=== PATIENT | male | born 1950 | race Caucasian/White ===

== ENCOUNTER → 2018-04-08 | Outpatient (CLI) | payer BC ==
[~2018-04-08] MED LIST: ATORVASTATIN CA10 MG PO; FISH OIL500 M1 PO; LEVOTHYROXINE112 MCG PO; LISINOPRIL10 MG PO; PRINIVIL10 MG PO; SYNTHROID125 MCG PO; TRICOR145 MG PO
--- NOTE | 2018-04-08 14:58 | Diagnostic Imaging Report ---
PROCEDURE: CT CHEST WITHOUT CONTRAST CT scan of the chest WITHOUT intravenous contrast, using standard protocol. TECHNIQUE: The chest was scanned utilizing a multidetector helical scanner from the apex to the level of the adrenal glands. No IV contrast was administered because of pulmonary nodule protocol. Coronal and sagittal multiplanar reformations were obtained. DLP: 245.09 mGy-cm COMPARISON: Multiple chest CT's dating back to 05/29/2016, most recent on 07/28/2017 INDICATIONS: LUNG NODULE FINDINGS: Lines/tubes: None. Lungs and Airways: Right upper lobe spiculated nodule (series 3 image 37), stable since most root available chest CT from 05/29/2016. Left apical calcified granuloma, unchanged. No consolidations. Airways are normal. Pleura: Stable lingular pleuroparenchymal thickening and scarring since 05/29/2016. No pleural effusions or pneumothorax. Heart and mediastinum: The thyroid gland is normal. No significant mediastinal, hilar or axillary lymphadenopathy is seen. The heart and pericardium are within normal limits. Coronary artery calcifications, more prominent along the left anterior descending and right coronary arteries. Common origin of the left common carotid and right brachiocephalic arteries. Ascending aorta is mildly ectatic measuring 4.1 cm in diameter. Main pulmonary artery measures 3 cm in diameter. Soft tissues: Normal. Abdomen: Partially visualized views of the right kidney show cortical scarring. Cholecystectomy clips in the gallbladder fossa. Calcified granuloma in the spleen. Limited views of the upper abdomen show no abnormality within the visualized liver, spleen, pancreas, or kidneys. The adrenal glands are normal. Bones: The visualized bony thorax is within normal limits for age. IMPRESSION: Right upper lobe 1 cm spiculated nodule, stable since 05/29/2016. Dictated by: Jose Spear M.D. on 04/08/2018 at 15:01 Electronically approved by: Jose Spear M.D. on 04/08/2018 at 15:01
--- NOTE | 2018-04-08 15:47 | Diagnostic Imaging Report ---
PROCEDURE:US RETROPERITONEAL ( KIDNEY ). COMPARISON:Renal ultrasound 09/23/2017 INDICATIONS:F/U RENAL CYST TECHNIQUE: Cveallos-scale and color sonographic images of the bilateral kidneys and bladder where obtained in transverse and longitudinal planes. FINDINGS: RIGHT KIDNEY: 9.4 x 5.2 x 5.7 cm, cortex 1.5 cm Cysts: * Inferior pole 6.5 x 5.3 x 5.4 cm cyst contains a single septation which is better seen on the previous ultrasound (previously 6.1 x 5.4 x 5.7 cm) * Interpolar region 2.5 x 2.2 x 1.6 cm simple cyst (previously 2.1 x 1.9 x 2.4 cm) Solid masses: None Stones: None Hydronephrosis: None Echogenicity: Normal LEFT KIDNEY: 10.2 x 5.7 x 5.6 cm, cortex 2 cm Cysts: None Solid masses: None Stones: None Hydronephrosis: None Echogenicity: Normal Bladder: Normal Prostate: 2.7 x 2.3 x 3.8 cm (12.4 cc). Size likely underestimated by shadowing. CONCLUSION: Grossly unchanged size of the two right renal cysts. Dictated by: Jose Spear M.D. on 04/08/2018 at 15:51 Electronically approved by: Jose Spear M.D. on 04/08/2018 at 15:51
== END ==
LOC: US 13:51
PROVIDERS: ATTEND Urology
DX: N28.1 Cyst of kidney, acquired (principal); R91.1 Solitary pulmonary nodule
CPT/HCPCS: 71250; 76770

== ENCOUNTER → 2018-07-06 | Outpatient (CLI) | payer BC ==
--- NOTE | 2018-07-06 18:17 | Diagnostic Imaging Report ---
EXAM: Renal Ultrasound INDICATION: \S\ABNORMAL KIDNEY FUNCTION COMPARISON: CT abdomen/pelvis on 05/20/2016 TECHNIQUE: Transverse and longitudinal images of the kidneys and bladder were obtained. FINDINGS: Right Kidney: Size: 9.8 cm Echogenicity: Normal Parenchymal thickness: Normal Collecting system: No hydronephrosis Stones: None Cyst/Mass: 6.4 x 5 x 5 cm inferior pole cyst. 2.2 x 1.9 x 2 cm midpole cyst. Left Kidney: Size: 10.6 cm Echogenicity: Normal Parenchymal thickness: Normal Collecting system: No hydronephrosis Stones: None Cyst/Mass: None Bladder: Unremarkable. Prostate is mildly enlarged. IMPRESSION: Simple appearing right renal cysts, measuring up to 6.4 cm. Otherwise, unremarkable renal ultrasound. Signed by: Dr. Ghulam Hamm MD on 07/06/2018 6:13 PM
== END ==
LOC: US 16:39
PROVIDERS: ATTEND Specialist
DX: R94.4 Abnormal results of kidney function studies (principal)
CPT/HCPCS: 76770

== ENCOUNTER → 2019-02-25 | Outpatient (CLI) | payer BC ==
--- NOTE | 2019-02-25 16:14 | Diagnostic Imaging Report ---
EXAM: Renal Ultrasound INDICATION: Renal cyst. COMPARISON: Renal ultrasound 07/06/2018. TECHNIQUE: Transverse and longitudinal images of the kidneys and bladder were obtained. FINDINGS: Right Kidney: Size: 9.4 cm Echogenicity: Normal Parenchymal thickness: Normal Collecting system: No hydronephrosis Stones: None Cyst/Mass: Again noted are simple appearing right-sided anechoic renal cysts, measuring up to 5.5 x 6.5 x 6.1 cm in the inferior pole (previously 6.4 x 5 x 5 cm), and a 1.9 x 2.1 x 2.2 cm cyst in the midpole (previously 2.2 x 1.9 x 2.0 cm). Left Kidney: Size: 10.2 cm Echogenicity: Normal Parenchymal thickness: Normal Collecting system: No hydronephrosis Stones: None Cyst/Mass: None Bladder: Unremarkable. Bilateral ureteral jets are present. Prostate measures 3.3 x 2.1 x 3.2 cm, with an estimated volume of 11.6 cc. IMPRESSION: Simple appearing right renal cysts. Otherwise, unremarkable renal ultrasound. Signed by: Dr. Alex Arango MD on 02/25/2019 4:11 PM
== END ==
LOC: US 15:07
PROVIDERS: ATTEND Urology
DX: N28.1 Cyst of kidney, acquired (principal); D41.00 Neoplasm of uncertain behavior of unspecified kidney
CPT/HCPCS: 76770

== ENCOUNTER → 2019-04-01 | Outpatient (CLI) | payer BC ==
--- NOTE | 2019-04-01 18:05 | Diagnostic Imaging Report ---
CT scan of the LEFT ANKLE, WITHOUT injected contrast. TECHNIQUE: Standard departmental protocols were used. Sagittal and coronal reformatted images were obtained. HISTORY: Pain, tarsal tunnel syndrome COMPARISON: None. FINDINGS: Bones: Status post ORIF of the medial malleolus via 3 screws. Beam Scott artifact partially limits regional evaluation. No evidence of hardware loosening or failure. A 1.7 cm (AP) x 1.1 cm (ML) chronic appearing osteochondral lesion at the medial talar dome, apparent cystic changes at the interface. Joints: Minimal degenerative changes of the tibiotalar joint. Soft Tissues: Mild nonspecific soft tissue edema. Preservation of fat within the sinus tarsi. IMPRESSION: 1. 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 2. Status post ORIF of a healed medial malleolar fracture. No evidence of hardware loosening or failure. 3. Minimal tibiotalar osteoarthrosis. Signed by: Dr. Mason Ferrera D.O., M.M.M. on 04/01/2019 6:01 PM
== END ==
LOC: CT 16:45
PROVIDERS: ATTEND Orthopaedic Surgery
DX: G57.52 Tarsal tunnel syndrome, left lower limb (principal); M25.572 Pain in left ankle and joints of left foot

== ENCOUNTER → 2020-03-01 | Day surgery (SDC) | payer BC, OTHER ==
[2020-02-25 12:35] LABS: BASOPHILS % 0.7 % (0.0-1.0); EOSINOPHILS # (AUTO) 0.3 (0.0-0.4); EOSINOPHILS % 5.9 % (0.0-6.0); HEMATOCRIT 52.2 % (38.2-49.6); HEMOGLOBIN 18.1 g/dL (14.0-18.0); LYMPHOCYTES # (AUTO) 1.4 (1.0-3.2); LYMPHOCYTES % 25.7 % (18.0-39.1); MEAN CORPUSCULAR HEMOGLOBIN 32.9 pg (28-32); MEAN CORPUSCULAR HGB CONC 34.7 g/dL (31-35); MEAN CORPUSCULAR VOLUME 94.9 fL (81-99); MONOCYTES # (AUTO) 0.6 (0.2-0.8); MONOCYTES % 11.2 % (4.4-11.3); NEUTROPHILS % 56.3 % (38.7-80.0); PLATELET COUNT 155 x10e3/uL (140-360); RED CELL DISTRIBUTION WIDTH 11.9 % (11.7-14.4)
[~2020-03-01] MED LIST changes: +ALLOPURINOL100 MG PO; +AMLODIPINE BESY10 MG PO; +ASPIR 8181 MG PO; +FENTANYL CITRATE/PF 100MCG/2 ML INJ ONE; +HYOSCYAMINE 0.125 MG TAB ONE; +LIDOCAINE HCL 2% LOCAL INJ 5 ML SDV VIAL INJ ONE; +LOSARTAN POTASS25 MG PO; +MIDAZOLAM HCL 5 MG/ML VIAL ONE; +PROPOFOL IV EMULSION 10 MG/ML 20 ML VIAL ONE; +PROTONIX20 MG PO; +ZETIA10 MG PO
[2020-03-01 15:36] VITALS: BP 134/86
--- NOTE | 2020-03-01 22:06 | Operative Report ---
DATE OF PROCEDURE: 03/01/2020 SURGEON: Bradford Stein MD PROCEDURE: EGD with biopsies and colonoscopy with polypectomy. INDICATIONS FOR EGD: History of heartburn and indigestion. INDICATIONS FOR COLONOSCOPY: Surveillance colonoscopy, personal history of colon polyps. MEDICATIONS: The patient was done under MAC, please see anesthesiologist's note. PROCEDURE IN DETAIL: With the patient in left lateral decubitus position, a flexible fiberoptic Olympus gastroscope was introduced into the esophagus under direct visualization without any difficulty. There was some patchy erythema noted in distal esophagus. Minute nodule was noted at the GE junction that was biopsied. The scope was then advanced with ease into the stomach traversing a small hiatal hernia. Mucosa overlying the antrum and the body revealed some patchy erythema and [id number] edema, and biopsies were obtained, sent to stain for H pylori. Minute hyperplastic-appearing polyps were noted in the body somewhat partially excised with cold biopsy forceps. The pylorus was of normal contour and shape, was intubated with ease and the scope was advanced all the way to the second portion of the duodenum. The scope was then withdrawn slowly. Mucosa overlying the proximal second portion and the duodenal bulb appeared to be within normal limits. The scope was then withdrawn back into the stomach and retroflexed and mucosa overlying the fundus and cardia appeared to be within normal limits. The scope was then straightened out, it was subsequently withdrawn. The patient tolerated the procedure well. IMPRESSION: 1. Distal esophagitis, mild. 2. Minute nodule, GE junction, biopsied. 3. Small hiatal hernia. 4. Gastritis, biopsied. Biopsies sent to stain for H pylori. 5. Gastric polyps, minute, hyperplastic-appearing, body, partially excised with the cold biopsy forceps. PLAN: Follow up histology. Increase Protonix to 40 mg one p.o. a.c. b.i.d. The patient was then turned around. After adequate lubrication of the anal canal, a flexible fiberoptic Olympus colonoscope was inserted into the rectum with ease and advanced all the way to the cecum. It was then withdrawn slowly. Mucosa overlying the cecum and ascending colon appeared to be within normal limits. An approximately a 5 mm polyp was removed from the transverse colon per hot snare polypectomy and site was hemoclipped x1. Diverticular disease was noted to involve the descending and the sigmoid colon. One polyp was hot biopsied from the sigmoid colon. One polyp was hot biopsied from the rectum. The scope was then retroflexed into the distal rectum. Small internal hemorrhoids were noted, none of which was actively bleeding. The scope was then straightened out, it was subsequently withdrawn. The patient tolerated the procedure well. IMPRESSION: 1. Transverse colon polyp hot snared and hemoclipped x1. 2. Diverticulosis. 3. A sigmoid colon polyp, hot biopsied. 4. Rectal polyp, hot biopsied. 5. Internal hemorrhoids none actively bleeding. PLAN: Follow up histology. Initiate high-fiber, low-fat diet. Initiate high-fiber supplement. The patient might benefit from a followup colonoscopy in 3 to 5 years. Bradford Stein MD [facility] [place] /[id number] cc: Mini Garcia
== END | disposition home or self-care (01) ==
LOC: OR 10:23
PROVIDERS: ATTEND Internal Medicine Gastroenterology
DX: K29.50 Unspecified chronic gastritis without bleeding (principal); D12.3 Benign neoplasm of transverse colon; K62.1 Rectal polyp; K31.7 Polyp of stomach and duodenum; K21.9 Gastro-esophageal reflux disease without esophagitis; K22.8 Other specified diseases of esophagus; K44.9 Diaphragmatic hernia without obstruction or gangrene; K20.9 Esophagitis, unspecified; K57.30 Diverticulosis of large intestine without perforation or abscess without bleeding; K64.8 Other hemorrhoids; I10 Essential (primary) hypertension; R00.1 Bradycardia, unspecified; E78.5 Hyperlipidemia, unspecified; E03.9 Hypothyroidism, unspecified; Z01.810 Encounter for preprocedural cardiovascular examination; Z01.812 Encounter for preprocedural laboratory examination; Z11.59 Encounter for screening for other viral diseases; Z79.82 Long term (current) use of aspirin
CPT/HCPCS: 36415; 43239; 45384; 45385; 85025; 87635; 93005; J2001; J2250; J2704; J3010; 44391

== ENCOUNTER → 2020-06-06 | Outpatient (CLI) | payer BC ==
[~2020-06-06] MED LIST changes: -FENTANYL CITRATE/PF 100MCG/2 ML INJ ONE; -HYOSCYAMINE 0.125 MG TAB ONE; -LIDOCAINE HCL 2% LOCAL INJ 5 ML SDV VIAL INJ ONE; -MIDAZOLAM HCL 5 MG/ML VIAL ONE; -PROPOFOL IV EMULSION 10 MG/ML 20 ML VIAL ONE
--- NOTE | 2020-06-06 16:26 | Diagnostic Imaging Report ---
EXAM: Renal Ultrasound INDICATION: ^CYST OF KIDNEY COMPARISON: Renal ultrasound 02/25/2019 and 07/06/2018 TECHNIQUE: Transverse and longitudinal images of the kidneys and bladder were obtained. FINDINGS: Right Kidney: Length: 10.2 cm Appearance: Normal echogenicity. Collecting system: No hydronephrosis Stones: None Cyst/Mass: Essentially unchanged anechoic cysts measure up to 6.4 x 6.1 x 5.0 cm (6.5 x 6.1 x 5.5 cm previously). Left Kidney: Length: 10.9 cm Appearance: Normal echogenicity. Collecting system: No hydronephrosis Stones: None Cyst/Mass: None Bladder: No mass or calculi. Ureteral jets not visualized. Bladder volume estimate of 64 cc. Prostate appears unremarkable with volume estimate of 20 cc. IMPRESSION: Stable anechoic right renal cysts. No hydronephrosis or renal calculi. Signed by: Brock Moody MD on 06/06/2020 4:22 PM
== END ==
LOC: US 14:52
PROVIDERS: ATTEND Urology
DX: N28.1 Cyst of kidney, acquired (principal)
CPT/HCPCS: 76770

== ENCOUNTER → 2020-06-12 | Outpatient (CLI) | payer BC | LOC: CARD 13:31 | PROVIDERS: ATTEND General Practice | DX: R55 Syncope and collapse (principal) | CPT/HCPCS: 93880 ==

== ENCOUNTER 2021-03-14 16:01 | Inpatient (IN) | payer MEDICARE, BC ==
[~2021-03-14] VITALS: Ht 175.3 cm; Wt 89.8 kg
[2021-03-14] MEDS ORDERED: SODIUM CHLORIDE 0.9% 1000ML 1,000 ML IV STA (16:13)
[2021-03-14] MEDS ORDERED: MORPHINE SULFATE INJ 4 MG/ML INJ 1ML IV STA (16:15)
[2021-03-14 16:22] LABS: BASOPHILS % 0.4 % (0.0-1.0); EOSINOPHILS # (AUTO) 0.1 (0.0-0.4); EOSINOPHILS % 0.6 % (0.0-6.0); HEMATOCRIT 48.8 % (38.2-49.6); LYMPHOCYTES # (AUTO) 1.2 (1.0-3.2); LYMPHOCYTES % 10.7 % (18.0-39.1); MEAN CORPUSCULAR HEMOGLOBIN 33.1 pg (28-32); MEAN CORPUSCULAR HGB CONC 34.8 g/dL (31-35); MEAN CORPUSCULAR VOLUME 94.9 fL (81-99); MONOCYTES % 9.6 % (4.4-11.3); NEUTROPHILS # (AUTO) 8.5 (2.1-6.9); NEUTROPHILS % 78.5 % (38.7-80.0); PLATELET COUNT 187 x10e3/uL (140-360); RED BLOOD COUNT 5.14 x10e6/uL (4.3-5.7); RED CELL DISTRIBUTION WIDTH 12.1 % (11.7-14.4)
[2021-03-14] MEDS: ONDANSETRON HCL INJ 2MG/ML 2ML 2 MG/ML VIAL IV PRN ×2 (16:31→21:01)
[2021-03-14 16:41] LABS: ALBUMIN 4.1 g/dL (3.5-5.0); ALBUMIN/GLOBULIN RATIO 1.4 (0.8-2.0); ANION GAP 14.8 mmol/L (8-16); CALCIUM 9.1 mg/dL (8.4-10.2); CREATININE, SERUM 1.43 mg/dL (0.72-1.25); POTASSIUM 3.8 mmol/L (3.5-5.1)
[2021-03-14] MEDS ORDERED: SODIUM CHLORIDE 0.9% 50ML 50 ML ONE (17:01)
[2021-03-14] MEDS ORDERED: DIATRIZOATE MEGL/DIATRIZOA SOD 30 ML BTL PO ONE (17:01)
[2021-03-14] MEDS ORDERED: IOPAMIDOL 370 MG/ML 200 ML INFUS..BTL INJ ONE (17:01)
[2021-03-14 18:48] LABS: CLARITY,URINE CLEAR (CLEAR); COLOR,URINE YELLOW (YELLOW); KETONES,URINE NEGATIVE (NEGATIVE); LEUKOCYTE ESTERASE ,URINE NEGATIVE (NEGATIVE); NITRITE,URINE NEGATIVE (NEGATIVE); PROTEIN,URINE DIPSTICK NEGATIVE (NEGATIVE); URINE UROBILINOGEN 1 mg/dL (0.2 - 1)
[2021-03-14 18:51] LABS: WBC,URINE (MAN) 0-5 /HPF (0-5)
[2021-03-14 20:26] VITALS: BP 152/87
[2021-03-14 20:30] VITALS: BP 152/87
[2021-03-14] MEDS: D5.45%NS/KCL 20MEQ 1,000 ML IV SCH (20:53)
[2021-03-14] MEDS: MORPHINE SULFATE INJ 2 MG/ML SYR IV PRN (21:01)
[2021-03-14 22:19] VITALS: BP 152/87
[2021-03-14] MEDS ORDERED: HYDRALAZINE HCL 20 MG/ML VIAL IV PRN (22:30)
[2021-03-14 23:43] VITALS: BP 121/75
[2021-03-15] VITALS (8 sets, daily range): BP systolic 111–123; BP diastolic 58–86
[2021-03-15] MEDS: ONDANSETRON HCL INJ 2MG/ML 2ML 2 MG/ML VIAL IV PRN ×3 (04:35→19:44)
[2021-03-15] MEDS: MORPHINE SULFATE INJ 2 MG/ML SYR IV PRN ×2 (04:35→08:40)
[2021-03-15 04:45] LABS: BASOPHILS % 0.9 % (0.0-1.0); EOSINOPHILS # (AUTO) 0.1 (0.0-0.4); EOSINOPHILS % 1.9 % (0.0-6.0); HEMATOCRIT 48.4 % (38.2-49.6); HEMOGLOBIN 16.5 g/dL (14.0-18.0); LYMPHOCYTES # (AUTO) 0.6 (1.0-3.2); LYMPHOCYTES % 13.9 % (18.0-39.1); MEAN CORPUSCULAR HEMOGLOBIN 32.9 pg (28-32); MEAN CORPUSCULAR HGB CONC 34.1 g/dL (31-35); MEAN CORPUSCULAR VOLUME 96.6 fL (81-99); MONOCYTES # (AUTO) 0.4 (0.2-0.8); MONOCYTES % 8.6 % (4.4-11.3); NEUTROPHILS # (AUTO) 3.2 (2.1-6.9); NEUTROPHILS % 74.5 % (38.7-80.0); PLATELET COUNT 144 x10e3/uL (140-360); RED BLOOD COUNT 5.01 x10e6/uL (4.3-5.7); RED CELL DISTRIBUTION WIDTH 12.2 % (11.7-14.4)
[2021-03-15 05:15] LABS: ALANINE AMINOTRANSFERASE 148 IU/L (0-55); ALBUMIN 3.5 g/dL (3.5-5.0); ALBUMIN/GLOBULIN RATIO 1.3 (0.8-2.0); ALKALINE PHOSPHATASE 97 IU/L (40-150); BLOOD UREA NITROGEN 13 mg/dL (7-26); BUN/CREATININE RATIO 12 (6-25); CALCIUM 8.4 mg/dL (8.4-10.2); CARBON DIOXIDE 26 mmol/L (22-29); CHLORIDE 105 mmol/L (98-107); CHOL/HDL RATIO 2.9 (3.9-4.7); CHOLESTEROL 112 MD/DL (0-199); CREATININE, SERUM 1.13 mg/dL (0.72-1.25); EST GLOMERULAR FILTRATION RATE > 60 ML/MIN (60-); GLUCOSE 110 mg/dL (74-118); HDL CHOLESTEROL 39 MG/DL (40-60); LDL CHOLESTEROL 49 MG/DL (60-130); MAGNESIUM 1.8 MG/DL (1.3-2.1); PHOSPHORUS 3.4 MG/DL (2.3-4.7); SODIUM 141 mmol/L (136-145); TRIGLYCERIDES 118 MG/DL (0-149)
[2021-03-15 05:35] LABS: THYROID STIMULATING HORMONE 0.833 uIU/mL (0.350-4.940)
[2021-03-15] MEDS: D5.45%NS/KCL 20MEQ 1,000 ML IV SCH ×3 (06:16→23:51)
[2021-03-15] MEDS: FAMOTIDINE 20 MG/2 ML VIAL IV SCH (08:41)
[2021-03-15] MEDS: MORPHINE SULFATE INJ 4 MG/ML INJ 1ML IV PRN (19:44)
[2021-03-16 04:00] VITALS: BP 119/65
[2021-03-16] MEDS: D5.45%NS/KCL 20MEQ 1,000 ML IV SCH (05:26)
[2021-03-16 07:43] VITALS: BP 129/69
[2021-03-16 07:45] VITALS: BP 129/69
[2021-03-16] MEDS: FAMOTIDINE 20 MG/2 ML VIAL IV SCH (09:09)
[2021-03-16] MEDS: MORPHINE SULFATE INJ 4 MG/ML INJ 1ML IV PRN (09:18)
[2021-03-16] MEDS: ONDANSETRON HCL INJ 2MG/ML 2ML 2 MG/ML VIAL IV PRN (09:18)
[2021-03-16 11:06] VITALS: BP 120/80
[2021-03-16 15:24] VITALS: BP 117/80
[2021-03-16] MEDS ORDERED: ULTRAM 50MG50 MG PO (16:48)
== END 2021-03-16 17:38 | disposition home or self-care (01) | DRG 389 ==
LOC: ER 16:13 → ERHOLD 19:33 → MED/SURG 20:21 → OBSVTOIN 03-15 09:13
PROVIDERS: ADMIT Internal Medicine; ATTEND Internal Medicine
DX: K56.50 Intestinal adhesions [bands], unspecified as to partial versus complete obstruction (principal); K57.92 Diverticulitis of intestine, part unspecified, without perforation or abscess without bleeding; N17.9 Acute kidney failure, unspecified; I10 Essential (primary) hypertension; E78.5 Hyperlipidemia, unspecified; Z20.822 Contact with and (suspected) exposure to COVID-19
CPT/HCPCS: 36415; 74018; 74177; 80053; 80061; 81001; 83036; 83690; 83735; 84100; 84443; 84484; 85025; 93005; 99284; G0378; J2270; J2405; J7030; Q9967; U0002

== ENCOUNTER → 2021-08-14 | Outpatient (CLI) | payer MEDICARE, BC ==
[~2021-08-14] MED LIST changes: +IOPAMIDOL 370 MG/ML 200 ML INFUS..BTL INJ ONE; +METOPROLOL TARTRATE INJ 1 MG/ML VIAL ONE; +NITROGLYCERIN 0.4 MG SUBL ONE; +SODIUM CHLORIDE 0.9% 100 ML ONE; +ULTRAM 50MG50 MG PO
[2021-08-14 08:50] LABS: CREATININE, SERUM 1.26 mg/dL (0.72-1.25)
== END ==
LOC: CT 08:06
PROVIDERS: ATTEND Specialist
DX: E78.5 Hyperlipidemia, unspecified (principal); I10 Essential (primary) hypertension; I25.10 Atherosclerotic heart disease of native coronary artery without angina pectoris
CPT/HCPCS: 36415; 75574; 82565; 84520; J7050; Q9967

== ENCOUNTER → 2021-09-19 | Outpatient (CLI) | payer MEDICARE, BC ==
[~2021-09-19] MED LIST changes: -METOPROLOL TARTRATE INJ 1 MG/ML VIAL ONE; -NITROGLYCERIN 0.4 MG SUBL ONE; -SODIUM CHLORIDE 0.9% 100 ML ONE; +SODIUM CHLORIDE 0.9% 500ML 500 ML ONE; +SODIUM CHLORIDE 0.9% 50ML 50 ML ONE
[2021-09-19 16:20] LABS: CREATININE, SERUM 1.59 mg/dL (0.72-1.25)
== END ==
LOC: CT 15:13
PROVIDERS: ATTEND General Practice
DX: N20.0 Calculus of kidney (principal); N28.1 Cyst of kidney, acquired; K40.20 Bilateral inguinal hernia, without obstruction or gangrene, not specified as recurrent
CPT/HCPCS: 36415; 74178; 82565; 84520; 96360; J7040; Q9967

== ENCOUNTER 2023-01-08 16:10 | Inpatient (IN) | payer MEDICARE, OTHER ==
[~2023-01-08] VITALS: Ht 175.3 cm; Wt 86.6 kg
[~2023-01-08 16:10] MED LIST changes: -IOPAMIDOL 370 MG/ML 200 ML INFUS..BTL INJ ONE; -SODIUM CHLORIDE 0.9% 500ML 500 ML ONE; -SODIUM CHLORIDE 0.9% 50ML 50 ML ONE
[2023-01-08] MEDS ORDERED: ONDANSETRON HCL INJ 2MG/ML 2ML 2 MG/ML VIAL IV STA (17:35)
[2023-01-08] MEDS ORDERED: Morphine 4mg INJECTION 4 MG/ML INJ IV STA (17:35)
[2023-01-08] MEDS ORDERED: SODIUM CHLORIDE 0.9% 1000ML 1,000 ML IV STA (17:35)
[2023-01-08 17:46] LABS: BASOPHILS # (AUTO) 0.1 (0.0-0.1); BASOPHILS % 0.3 % (0.0-1.0); EOSINOPHILS # (AUTO) 0.1 (0.0-0.4); EOSINOPHILS % 0.6 % (0.0-6.0); HEMATOCRIT 51.6 % (38.2-49.6); HEMOGLOBIN 17.7 g/dL (14.0-18.0); LYMPHOCYTES % 6.1 % (18.0-39.1); MEAN CORPUSCULAR HEMOGLOBIN 33.7 pg (28-32); MEAN CORPUSCULAR HGB CONC 34.3 g/dL (31-35); MEAN CORPUSCULAR VOLUME 98.1 fL (81-99); MONOCYTES # (AUTO) 0.9 (0.2-0.8); MONOCYTES % 5.8 % (4.4-11.3); NEUTROPHILS % 86.8 % (38.7-80.0); PLATELET COUNT 210 x10e3/uL (140-360); RED BLOOD COUNT 5.26 x10e6/uL (4.3-5.7); RED CELL DISTRIBUTION WIDTH 12.4 % (11.7-14.4)
[2023-01-08 18:00] LABS: ALBUMIN 4.2 g/dL (3.5-5.0); ALBUMIN/GLOBULIN RATIO 1.3 (0.8-2.0); ANION GAP 15.5 mmol/L (8-16); CALCIUM 9.8 mg/dL (8.4-10.2); CREATININE, SERUM 1.37 mg/dL (0.72-1.25); POTASSIUM 4.5 mmol/L (3.5-5.1)
[2023-01-08 18:07] LABS: CREATINE KINASE MB 1.5 ng/mL (0-5.0)
[2023-01-08] MEDS ORDERED: IOPAMIDOL 370 MG/ML 100 ML INFUS..BTL INJ ONE (19:52)
[2023-01-08] MEDS ORDERED: ONDANSETRON HCL INJ 2MG/ML 2ML 2 MG/ML VIAL IV PRN (20:45)
[2023-01-08] MEDS ORDERED: BENZOCAINE/TETRACAINE/BUTAMBEN AERO SPRAY 56 GM CAN TOP ONE (20:45)
[2023-01-09] MEDS: Morphine 4mg INJECTION 4 MG/ML INJ IV PRN ×3 (00:05→15:43)
[2023-01-09 00:27] VITALS: BP 142/88
[2023-01-09] MEDS ORDERED: INFLUENZA VIRUS VAC SPLIT INJ 0.5 ML SYR IM SCH (04:14)
[2023-01-09] MEDS ORDERED: PNEUMOCOCCAL VACCINE POLYVALENT 23 MCG/0.5 ML VIAL IM SCH (04:14)
[2023-01-09] MEDS: SODIUM CHLORIDE 0.9% 1000ML 1,000 ML IV SCH ×3 (04:45→15:43)
[2023-01-09] MEDS ORDERED: LISINOPRIL10 MG PO (05:07)
[2023-01-09] MEDS ORDERED: ASPIRIN CHEW81 MG PO (05:07)
[2023-01-09] MEDS ORDERED: AMLODIPINE BESYL5 MG PO (05:07)
[2023-01-09] MEDS ORDERED: LEVOTHYROXINE125 MCG PO (05:07)
[2023-01-09] MEDS ORDERED: FLOMAX0.4 MG PO (05:07)
[2023-01-09] MEDS ORDERED: EZETIMIBE10 MG PO (05:07)
[2023-01-09] MEDS ORDERED: ATORVASTATIN CA20 MG PO (05:07)
[2023-01-09] MEDS ORDERED: FAMOTIDINE40 MG (05:07)
[2023-01-09] MEDS ORDERED: ALLOPURINOL100 MG PO (05:07)
[2023-01-09 05:30] LABS: BASOPHILS % 0.4 % (0.0-1.0); EOSINOPHILS # (AUTO) 0.1 (0.0-0.4); EOSINOPHILS % 1.2 % (0.0-6.0); HEMATOCRIT 43.8 % (38.2-49.6); HEMOGLOBIN 14.8 g/dL (14.0-18.0); LYMPHOCYTES # (AUTO) 1.4 (1.0-3.2); LYMPHOCYTES % 13.9 % (18.0-39.1); MEAN CORPUSCULAR HEMOGLOBIN 33.3 pg (28-32); MEAN CORPUSCULAR HGB CONC 33.8 g/dL (31-35); MEAN CORPUSCULAR VOLUME 98.4 fL (81-99); MONOCYTES # (AUTO) 1.2 (0.2-0.8); MONOCYTES % 11.7 % (4.4-11.3); NEUTROPHILS # (AUTO) 7.4 (2.1-6.9); NEUTROPHILS % 72.4 % (38.7-80.0); PLATELET COUNT 156 x10e3/uL (140-360); RED BLOOD COUNT 4.45 x10e6/uL (4.3-5.7); RED CELL DISTRIBUTION WIDTH 12.4 % (11.7-14.4)
[2023-01-09 05:48] LABS: ALBUMIN 3.4 g/dL (3.5-5.0); ALBUMIN/GLOBULIN RATIO 1.4 (0.8-2.0); CALCIUM 8.6 mg/dL (8.4-10.2); CREATININE, SERUM 1.14 mg/dL (0.72-1.25)
[2023-01-09 08:34] VITALS: BP 122/72
[2023-01-09 08:55] VITALS: BP 122/72
[2023-01-09 11:40] VITALS: BP 110/75
[2023-01-09] MEDS ORDERED: GADOBENATE DIMEGLUMINE 1 ML IV ONE (14:21)
[2023-01-09 15:56] VITALS: BP 128/80
[2023-01-09 16:21] LABS: ALBUMIN 3.3 g/dL (3.5-5.0); ALBUMIN/GLOBULIN RATIO 1.3 (0.8-2.0); ANION GAP 11.6 mmol/L (8-16); CALCIUM 8.6 mg/dL (8.4-10.2); CREATININE, SERUM 1.31 mg/dL (0.72-1.25); POTASSIUM 4.6 mmol/L (3.5-5.1)
[2023-01-09 20:00] VITALS: BP 130/72
[2023-01-09] MEDS: BISACODYL 10 MG SUPP PR SCH (21:14)
[2023-01-09] MEDS: SODIUM CHLORIDE 0.9% 250ML IRRIG IR SCH (21:15)
[2023-01-10] VITALS (8 sets, daily range): BP systolic 119–144; BP diastolic 70–84
[2023-01-10] MEDS: SODIUM CHLORIDE 0.9% 250ML IRRIG IR SCH ×6 (01:21→20:39)
[2023-01-10] MEDS: SODIUM CHLORIDE 0.9% 1000ML 1,000 ML IV SCH ×4 (01:21→20:38)
[2023-01-10 05:31] LABS: BASOPHILS # (AUTO) 0.1 (0.0-0.1); BASOPHILS % 0.8 % (0.0-1.0); EOSINOPHILS # (AUTO) 0.2 (0.0-0.4); EOSINOPHILS % 3.1 % (0.0-6.0); HEMATOCRIT 42.7 % (38.2-49.6); HEMOGLOBIN 14.4 g/dL (14.0-18.0); LYMPHOCYTES # (AUTO) 0.8 (1.0-3.2); LYMPHOCYTES % 10.7 % (18.0-39.1); MEAN CORPUSCULAR HEMOGLOBIN 33.2 pg (28-32); MEAN CORPUSCULAR HGB CONC 33.7 g/dL (31-35); MEAN CORPUSCULAR VOLUME 98.4 fL (81-99); MONOCYTES # (AUTO) 0.5 (0.2-0.8); NEUTROPHILS # (AUTO) 5.8 (2.1-6.9); NEUTROPHILS % 78.1 % (38.7-80.0); PLATELET COUNT 130 x10e3/uL (140-360); RED BLOOD COUNT 4.34 x10e6/uL (4.3-5.7); RED CELL DISTRIBUTION WIDTH 12.2 % (11.7-14.4)
[2023-01-10 06:00] LABS: ALBUMIN 3.4 g/dL (3.5-5.0); ALBUMIN/GLOBULIN RATIO 1.3 (0.8-2.0); ANION GAP 11.9 mmol/L (8-16); CALCIUM 8.7 mg/dL (8.4-10.2); CREATININE, SERUM 1.08 mg/dL (0.72-1.25); POTASSIUM 3.9 mmol/L (3.5-5.1)
[2023-01-10] MEDS: Morphine 4mg INJECTION 4 MG/ML INJ IV PRN (07:50)
[2023-01-10] MEDS: BISACODYL 10 MG SUPP PR SCH ×2 (09:16→20:34)
[2023-01-11] VITALS: BP 107/68
[2023-01-11] MEDS: SODIUM CHLORIDE 0.9% 250ML IRRIG IR SCH ×3 (02:00→08:58)
[2023-01-11 04:00] VITALS: BP 122/58
[2023-01-11 07:24] LABS: BASOPHILS % 0.8 % (0.0-1.0); EOSINOPHILS # (AUTO) 0.2 (0.0-0.4); EOSINOPHILS % 3.7 % (0.0-6.0); HEMATOCRIT 44.3 % (38.2-49.6); HEMOGLOBIN 14.8 g/dL (14.0-18.0); LYMPHOCYTES % 19.7 % (18.0-39.1); MEAN CORPUSCULAR HEMOGLOBIN 33.2 pg (28-32); MEAN CORPUSCULAR HGB CONC 33.4 g/dL (31-35); MEAN CORPUSCULAR VOLUME 99.3 fL (81-99); MONOCYTES # (AUTO) 0.5 (0.2-0.8); MONOCYTES % 9.1 % (4.4-11.3); NEUTROPHILS # (AUTO) 3.3 (2.1-6.9); NEUTROPHILS % 66.5 % (38.7-80.0); PLATELET COUNT 132 x10e3/uL (140-360); RED BLOOD COUNT 4.46 x10e6/uL (4.3-5.7); RED CELL DISTRIBUTION WIDTH 12.3 % (11.7-14.4)
[2023-01-11 07:40] LABS: ALBUMIN 3.5 g/dL (3.5-5.0); ALBUMIN/GLOBULIN RATIO 1.2 (0.8-2.0); CALCIUM 9.4 mg/dL (8.4-10.2); CREATININE, SERUM 1.12 mg/dL (0.72-1.25)
[2023-01-11] MEDS: BISACODYL 10 MG SUPP PR SCH (08:00)
[2023-01-11] MEDS: SODIUM CHLORIDE 0.9% 1000ML 1,000 ML IV SCH (09:05)
[2023-01-11 09:20] VITALS: BP 137/77
[2023-01-11 09:21] VITALS: BP 137/77
== END 2023-01-11 11:28 | disposition home or self-care (01) | DRG 389 ==
LOC: ER 18:31 → ERHOLD 20:47 → MED/SURG 23:43
PROVIDERS: ADMIT Internal Medicine; ATTEND Internal Medicine
PROC: 0D9670Z Drainage of Stomach with Drainage Device, Via Natural or Artificial Opening (ICD-10-PCS; principal; 2023-01-08)
DX: K56.609 Unspecified intestinal obstruction, unspecified as to partial versus complete obstruction (principal); N17.9 Acute kidney failure, unspecified; I10 Essential (primary) hypertension; K44.9 Diaphragmatic hernia without obstruction or gangrene; E78.5 Hyperlipidemia, unspecified; K21.9 Gastro-esophageal reflux disease without esophagitis; N40.0 Benign prostatic hyperplasia without lower urinary tract symptoms; E03.9 Hypothyroidism, unspecified; M10.9 Gout, unspecified; R74.01 Elevation of levels of liver transaminase levels; K57.90 Diverticulosis of intestine, part unspecified, without perforation or abscess without bleeding; D72.9 Disorder of white blood cells, unspecified; Z20.822 Contact with and (suspected) exposure to COVID-19; Z59.6 Low income; Z79.82 Long term (current) use of aspirin; Z90.49 Acquired absence of other specified parts of digestive tract
CPT/HCPCS: 36415; 71046; 74018; 74019; 74022; 74177; 74183; 80053; 82248; 82550; 82553; 83605; 83690; 84484; 85025; 87040; 90732; 93005; 96360; 99285; J2270; J2405; J2543; J7030; Q9967

== ENCOUNTER → 2023-03-08 | Day surgery (SDC) | payer MEDICARE, OTHER ==
[2023-03-05 14:35] LABS: BASOPHILS # (AUTO) 0.1 (0.0-0.1); BASOPHILS % 0.9 % (0.0-1.0); EOSINOPHILS # (AUTO) 0.2 (0.0-0.4); EOSINOPHILS % 4.4 % (0.0-6.0); HEMATOCRIT 44.6 % (38.2-49.6); HEMOGLOBIN 15.3 g/dL (14.0-18.0); LYMPHOCYTES # (AUTO) 1.5 (1.0-3.2); LYMPHOCYTES % 26.7 % (18.0-39.1); MEAN CORPUSCULAR HEMOGLOBIN 33.3 pg (28-32); MEAN CORPUSCULAR HGB CONC 34.3 g/dL (31-35); MONOCYTES # (AUTO) 0.7 (0.2-0.8); MONOCYTES % 13.5 % (4.4-11.3); NEUTROPHILS % 54.3 % (38.7-80.0); PLATELET COUNT 153 x10e3/uL (140-360)
[~2023-03-08] MED LIST changes: +AMLODIPINE BESYL5 MG PO; +ASPIRIN CHEW81 MG PO; +ATORVASTATIN CA20 MG PO; +EZETIMIBE10 MG PO; +FAMOTIDINE40 MG; +FLOMAX0.4 MG PO; +GLUCAGON FOR INJ 1 MG VIAL ONE; +LACTATED RINGER'S 1,000 ML BAG IV ONE; +LEVOTHYROXINE125 MCG PO; +LIDOCAINE HCL 2% LOCAL INJ 5 ML SDV VIAL INJ ONE; +PROPOFOL IV EMULSION 10 MG/ML 20 ML VIAL ONE
[2023-03-08 11:21] VITALS: TEMP 97.4
[2023-03-08 11:50] VITALS: BP 116/76; PULSE 55; RESP 16; O2SAT 98
== END | disposition home or self-care (01) ==
LOC: OR 08:31
PROVIDERS: ATTEND Internal Medicine Gastroenterology
DX: Z09 Encounter for follow-up examination after completed treatment for conditions other than malignant neoplasm (principal); K63.5 Polyp of colon; K57.30 Diverticulosis of large intestine without perforation or abscess without bleeding; K64.8 Other hemorrhoids; K21.9 Gastro-esophageal reflux disease without esophagitis; I10 Essential (primary) hypertension; E03.9 Hypothyroidism, unspecified; N40.0 Benign prostatic hyperplasia without lower urinary tract symptoms; M10.9 Gout, unspecified; Z01.810 Encounter for preprocedural cardiovascular examination; Z01.812 Encounter for preprocedural laboratory examination; Z79.82 Long term (current) use of aspirin; Z79.899 Other long term (current) drug therapy
CPT/HCPCS: 36415; 45380; 85025; 88305; 93005; J1610; J2001; J2704; J7121

== ENCOUNTER → 2023-10-01 | Outpatient (REF) | payer MEDICARE, OTHER ==
[~2023-10-01] MED LIST changes: -GLUCAGON FOR INJ 1 MG VIAL ONE; -LACTATED RINGER'S 1,000 ML BAG IV ONE; -LIDOCAINE HCL 2% LOCAL INJ 5 ML SDV VIAL INJ ONE; -PROPOFOL IV EMULSION 10 MG/ML 20 ML VIAL ONE
== END ==
LOC: CARD 12:48
PROVIDERS: ATTEND General Practice
DX: I65.23 Occlusion and stenosis of bilateral carotid arteries (principal)
CPT/HCPCS: 93880